=== PATIENT | male | born 1950 | race Caucasian/White ===

== ENCOUNTER → 2016-11-11 | Outpatient (CLI) | payer MEDICARE ==
[~2016-11-11] MED LIST: AMOXICILLIN/CLA1 TA1 PO; ASPIRIN E.C. 8181 MG PO; BENADRYL25 M2 PO; BRILINTA90 MG PO; COREG12.5 MG PO; MASON NATURAL1200 MG PO; MULTI VITAMINS1 TAB PO; NORCO 325 MG-51 TAB PO; NORCO 325 MG-7.1 TAB PO; PLAVIX 75MG TAB75 MG PO; PRINIVIL10 MG PO; PRINIVIL20 MG PO; PROBIOTIC ACID1 EAC3 PO; ROXICODONE15 MG PO; RT SPIRIVA18 MCG IH; XANAX .25M0.25 MG/TA PO
== END ==
LOC: COL.RAD 10:12
PROVIDERS: Urology
DX: N28.89 Other specified disorders of kidney and ureter (principal)
CPT/HCPCS: Q9967

== ENCOUNTER → 2017-01-16 | Outpatient (CLI) | payer MEDICARE | LOC: COL.RAD 10:36 | PROVIDERS: Surgery | DX: K57.30 Diverticulosis of large intestine without perforation or abscess without bleeding (principal); D38.1 Neoplasm of uncertain behavior of trachea, bronchus and lung | CPT/HCPCS: Q9967 ==

== ENCOUNTER 2017-04-17 09:42 | Outpatient (CLI) | payer MEDICARE ==
[~2017-04-17] VITALS: Ht 170.2 cm; Wt 81.8 kg
[2017-04-17] VITALS (18 sets, daily range): BP systolic 115–187; BP diastolic 55–98; PULSE 54–70
[2017-04-17] MEDS ORDERED: NORCO 325 MG-51 TAB PO (10:04)
== END 2017-04-17 14:23 | disposition home or self-care (01) ==
LOC: COL.RAD 09:42
DX: R91.1 Solitary pulmonary nodule (principal); J98.4 Other disorders of lung; C64.9 Malignant neoplasm of unspecified kidney, except renal pelvis
CPT/HCPCS: 18871

== ENCOUNTER 2017-06-02 06:48 | Outpatient (CLI) | payer MEDICARE ==
[~2017-06-02] VITALS: Ht 170.2 cm; Wt 87.0 kg
[2017-06-02] VITALS (15 sets, daily range): BP systolic 139–181; BP diastolic 70–96; PULSE 53–72
== END 2017-06-02 11:10 | disposition home or self-care (01) ==
LOC: COL.RAD 06:48
DX: R91.8 Other nonspecific abnormal finding of lung field (principal); Z85.528 Personal history of other malignant neoplasm of kidney
CPT/HCPCS: 27584

== ENCOUNTER → 2017-08-11 | Outpatient (CLI) | payer MEDICARE | LOC: COL.RAD 12:23 | DX: R91.8 Other nonspecific abnormal finding of lung field (principal); Z90.5 Acquired absence of kidney | CPT/HCPCS: Q9967 ==

== ENCOUNTER → 2018-04-06 | Outpatient (CLI) | payer MEDICARE | LOC: COL.RAD 08:40 | DX: R59.0 Localized enlarged lymph nodes (principal); J43.9 Emphysema, unspecified; C64.1 Malignant neoplasm of right kidney, except renal pelvis; Z90.5 Acquired absence of kidney | CPT/HCPCS: Q9967 ==

== ENCOUNTER 2019-10-04 07:58 | Emergency (ER) | payer MEDICARE ==
[~2019-10-04] VITALS: Ht 170.2 cm; Wt 89.1 kg
[2019-10-04 08:12] VITALS: TEMP 98.7
[2019-10-04 08:26] LABS: BASO % 0.7 % (0.0-2.0); EOS # 0.1 (0.0-0.7); EOS % 1.1 % (0-4.0); GRAN # 3.8 (1.4-6.5); GRAN % 69.2 % (42.2-75.2); HEMATOCRIT 44.9 % (42.0-52.0); HEMOGLOBIN 14.7 g/dl (13.5-18.0); LYMPH % 17.9 % (20.0-51.0); MEAN CELL VOLUME 104 fl (80.0-100.0); MEAN CORPUSCULAR HEMOGLOBIN 34 pg (27.0-31.0); MEAN CORPUSCULAR HGB CONC 33 g/dl (33.0-37.0); MEAN PLATELET VOLUME 9.9 fl (7.4-10.4); MONO # 0.6 (0.1-0.6); MONO % 10.7 % (1.7-9.3); PLATELET COUNT 179 K/mm3 (130-400); RED BLOOD COUNT 4.34 M/mm3 (4.20-5.60); REDCELL DISTRIBUTION WIDTH-CV 12.7 % (11.5-14.5)
[2019-10-04] MEDS ORDERED: NORVASC 5MG5 MG/TAB PO (08:28)
[2019-10-04] MEDS ORDERED: COZAAR 50MG50 MG/TAB PO (08:30)
[2019-10-04 08:36] LABS: INR 1.2 (0.8-3.0); PROTHROMBIN TIME 13.8 SECONDS (9.7-12.8)
[2019-10-04 08:37] LABS: CREATININE, serum 1.45 (0.66-1.25)
[2019-10-04 08:38] LABS: ALBUMIN 4.4 gm/dL (3.5-5.0); BILIRUBIN,TOTAL 0.6 mg/dL (0.0-1.0); C-REACTIVE PROTEIN 1.6 mg/dL (0.0-0.9); CALCIUM 9.1 mg/dL (8.4-10.2); POTASSIUM 4.8 mmol/L (3.4-5.0); TOTAL PROTEIN 7.8 gm/dL (6.4-8.2)
[2019-10-04] MEDS ORDERED: PEPCID AC 10MG10 MG PO (08:41)
[2019-10-04 09:15] LABS: COLLECTION METHOD CLEAN CATCH
[2019-10-04 09:28] LABS: MUCOUS Present /lpf; PH 5 (5-8); SQUAMOUS EPITHELIAL 0-2 /hpf; URINE APPEARANCE Clear; URINE BACTERIA None Seen /hpf; URINE BILIRUBIN Negative (NEGATIVE); URINE BLOOD Negative (NEGATIVE); URINE COLOR Yellow; URINE GLUCOSE Negative (NEGATIVE); URINE KETONE Trace (NEGATIVE); URINE LEUKOCYTE ESTERASE Negative (NEGATIVE); URINE NITRATE Negative (NEGATIVE); URINE PROTEIN(semi-quant) Negative (NEGATIVE); URINE RBC 0-2 /hpf; URINE UROBILINOGEN Negative (NEGATIVE)
[2019-10-04 10:45] VITALS: BP 161/86; PULSE 52
== END 2019-10-04 10:45 | disposition short-term general hospital (02) ==
LOC: COL.ER 07:58
PROVIDERS: Family Medicine
DX: I63.9 Cerebral infarction, unspecified (principal); I25.10 Atherosclerotic heart disease of native coronary artery without angina pectoris; Z79.02 Long term (current) use of antithrombotics/antiplatelets; Z79.82 Long term (current) use of aspirin; Z85.53 Personal history of malignant neoplasm of renal pelvis

== ENCOUNTER → 2020-03-07 | Outpatient (CLI) | payer MEDICARE ==
[~2020-03-07] MED LIST changes: +COZAAR 50MG50 MG/TAB PO; +NORVASC 5MG5 MG/TAB PO; +PEPCID AC 10MG10 MG PO
== END ==
LOC: COL.RAD 08:24
DX: C64.1 Malignant neoplasm of right kidney, except renal pelvis (principal); J98.59 Other diseases of mediastinum, not elsewhere classified; J43.9 Emphysema, unspecified; R91.1 Solitary pulmonary nodule; Z90.5 Acquired absence of kidney; Z98.890 Other specified postprocedural states; N32.89 Other specified disorders of bladder

== ENCOUNTER → 2021-05-17 | Outpatient (CLI) | payer MEDICARE | LOC: COL.RAD 12:10 | DX: Z90.5 Acquired absence of kidney (principal); C64.1 Malignant neoplasm of right kidney, except renal pelvis; Z79.899 Other long term (current) drug therapy ==

== ENCOUNTER 2024-05-02 13:57 | Inpatient (IN) | payer MEDICARE ==
[~2024-05-02] VITALS: Ht 170.2 cm; Wt 80.3 kg
[~2024-05-02 13:57] MED LIST changes: +ASPI325T6 PO; -ASPIRIN E.C. 8181 MG PO; +BREZTRI AEROS10.7 GM IH; +KRILL OIL 5001 EACH PO; +LOPID 600M600 MG/TAB PO; +NITROSTAT0.4 MG/TAB SL; +PREDNISONE20 MG PO; +PRILOTC PO; +[UNRECOGNIZED DRUG - CODE] SL
[2024-05-02 14:45] LABS: MEAN CELL VOLUME 97 fl (80.0-100.0); MEAN CORPUSCULAR HGB CONC 32 g/dl (33.0-37.0); MEAN PLATELET VOLUME 11.7 fl (7.4-10.4); PLATELET COUNT 104 K/mm3 (130-400); RED BLOOD COUNT 3.03 M/mm3 (4.20-5.60); REDCELL DISTRIBUTION WIDTH-CV 20.7 % (11.5-14.5)
[2024-05-02] MEDS ORDERED: NS 1,000 ML IV ONE ×4 (14:45→20:30)
[2024-05-02 14:46] LABS: HEMATOCRIT 29.3 % (42.0-52.0); HEMOGLOBIN 9.3 g/dl (13.5-18.0); MEAN CORPUSCULAR HEMOGLOBIN 31 pg (27-31)
[2024-05-02 15:06] LABS: ALBUMIN 2.9 g/dL (3.4-4.8); BILIRUBIN,TOTAL 0.7 mg/dL (0.2-1.2); CALCIUM 7.8 mg/dL (8.4-10.2); CREATININE, serum 2.38 mg/dL (0.72-1.25); POTASSIUM 4.7 mEq/L (3.5-4.5)
[2024-05-02 15:26] LABS: ANISOCYTOSIS 2+; BAND 2 % (0-10); HYPOCHROMIA 2+; LYMPHOCYTE 34 % (20.0-51.0); NEUTROPHILS 62 % (42.0-75.2); PLATELET ESTIMATE DECREASED (NORMAL)
[2024-05-02] MEDS ORDERED: Azithromycin 500 MG in NS 250 ML IV ONE (16:00)
[2024-05-02] MEDS ORDERED: cefTRIAXone 1 G in Water For Injection,Sterile 10 ML IV ONE (16:00)
[2024-05-02] MEDS ORDERED: NORCO 325 MG-101 TAB PO (16:42)
[2024-05-02] MEDS ORDERED: XANAX 0.5MG0.5 MG PO (16:44)
[2024-05-02 17:35] LABS: COLLECTION METHOD CLEAN CATCH
[2024-05-02 17:44] LABS: PH 5.5 (5.0-8.5); URINE APPEARANCE CLEAR (CLEAR/HAZY); URINE BLOOD NEGATIVE (NEGATIVE); URINE COLOR YELLOW (YELLOW); URINE GLUCOSE NEGATIVE (NEGATIVE); URINE KETONE NEGATIVE (NEGATIVE); URINE NITRATE NEGATIVE (NEGATIVE); URINE PROTEIN(semi-quant) 1+ (NEGATIVE)
[2024-05-02] MEDS ORDERED: *Potassium Replacement Protocol MC SCH (18:15)
[2024-05-02] MEDS ORDERED: Doxycycline Hyclate 100 MG in NS 150 ML IV SCH (18:30)
[2024-05-02] MEDS ORDERED: ALPRAZolam 0.5 MG TAB PO PRN (18:30)
[2024-05-02 18:38] VITALS: BP 108/50; PULSE 62; TEMP 97.7
[2024-05-02] MEDS ORDERED: NS 1,000 ML IV SCH ×2 (18:45→23:00)
--- NOTE | 2024-05-02 18:45 | NUR ---
Pt arrived to room ICU 4. Pt is A&Ox4. Denies pain. Vital signs are WNL. Pt denies any needs. Call light within reach. Bed alarm activated. Will continue with POC.
[2024-05-02] MEDS ORDERED: Albuterol/Ipratropium 3 MG-0.5 MG/3 ML Neb Soln IH SCH (19:00)
--- NOTE | 2024-05-02 22:54 | NUR ---
2245: NICHOLAS IN ICU TO CHECK ON PATIENTS. RECVD VERBL ORDER TO INCREASED IVFS TO 100CC/HR.
[2024-05-03] VITALS (8 sets, daily range): BP systolic 90–122; BP diastolic 51–66; PULSE 56–78; TEMP 97.4–98.3
[2024-05-03] MEDS ORDERED: Gemfibrozil 600 MG TAB PO SCH (07:00)
--- NOTE | 2024-05-03 07:00 | NUR ---
Report received from MAXIMINO Oscar; patient currently resting in bed watching TV. Patient has NS running through a peripheral line. Patient on 2 liters of O2 via NC this morning; no other lines or tubes are in place at this time. Patient's vital signs within normal limits this morning.
[2024-05-03 07:06] LABS: MEAN CELL VOLUME 98 fl (80.0-100.0); MEAN CORPUSCULAR HGB CONC 32 g/dl (33.0-37.0); MEAN PLATELET VOLUME 11.7 fl (7.4-10.4); PLATELET COUNT 93 K/mm3 (130-400); RED BLOOD COUNT 2.42 M/mm3 (4.20-5.60); REDCELL DISTRIBUTION WIDTH-CV 20.5 % (11.5-14.5)
[2024-05-03 07:15] LABS: HEMATOCRIT 23.8 % (42.0-52.0); HEMOGLOBIN 7.7 g/dl (13.5-18.0); MEAN CORPUSCULAR HEMOGLOBIN 32 pg (27-31)
[2024-05-03 07:35] LABS: ALBUMIN 2.3 g/dL (3.4-4.8); CALCIUM 6.6 mg/dL (8.4-10.2); CREATININE, serum 1.54 mg/dL (0.72-1.25); MAGNESIUM 1.9 mg/dL (1.6-2.6); PHOSPHOROUS 3.8 mg/dL (2.3-4.7); POTASSIUM 4.3 mEq/L (3.5-4.5)
[2024-05-03] MEDS ORDERED: Albuterol/Ipratropium 3 MG-0.5 MG/3 ML Neb Soln IH SCH (08:00)
[2024-05-03 08:19] LABS: BAND 3 % (0-10)
[2024-05-03 08:20] LABS: LYMPHOCYTE 35 % (20.0-51.0); NEUTROPHILS 59 % (42.0-75.2)
[2024-05-03 08:21] LABS: ANISOCYTOSIS 2+; HYPOCHROMIA 2+; PLATELET ESTIMATE DECREASED (NORMAL); TEAR DROP CELLS 1+
--- NOTE | 2024-05-03 09:35 | NUR ---
dope and fabric worker met with pt to discuss discharge planning. He reports to live with his , Paula [phone] in [place]. He sees Dr. Daniel and obtains medications from [facility] with no difficulties. He reports his as DPOA-HC and SW verified this on file. He is independent with ADLS and uses a cane and home oxygen as needed; he could not recall the company. He reports two recent falls this week related to his admission dx. SAÚL advised PT/OT will assess him and make reccomendations. Pt verbalized understanding of this. PT/OT Pending Discharge Plan: tbd, home
--- NOTE | 2024-05-03 10:24 | NUR ---
Initial visit; Patient thanked Product Handler for looking in on him and offering God's blessings. Patient states he is doing much better.
[2024-05-03] MEDS ORDERED: Clopidogrel 75 MG TAB PO SCH (10:38)
[2024-05-03] MEDS ORDERED: D5W 1,000 ML IV SCH (12:45)
[2024-05-03] MEDS ORDERED: Dextrose 50% Water 25 GM/50 ML SYRINGE IV PRN (13:15)
[2024-05-03] MEDS ORDERED: Dextrose (Glucose) 15 GM (4 x 3.75 GM) Chewable TABLET PACK PO PRN (13:15)
[2024-05-03] MEDS ORDERED: Glucagon 1 MG VIAL IM PRN (13:15)
[2024-05-03] MEDS ORDERED: HYDROcodone/Acetaminophen 10-325 MG TAB PO PRN (14:45)
[2024-05-03] MEDS ORDERED: Heparin 5,000 UNITS/ML 1 ML VIAL SQ SCH (16:00)
--- NOTE | 2024-05-03 16:00 | NUR ---
PATIENT ARRIVED TO UNIT AWAKE ALERT AND ORIENTED. CALL LIGHT WTIHIN REACH. PATIENT IVF INFUSING THE LAST BAG OF NS. PATIENTS AT BEDSIDE ASSISTING PATIENT TO GET "MOVED IN TO HIS NEW ROOM." VSS.
--- NOTE | 2024-05-03 16:45 | NUR ---
UPON ENTERING ROOM THIS RN SAW 2 MEDICATION BOTTLES AT PATIENT BEDSIDE. UPON LOOKING, THERE WAS A BOTTLE OF HYDROCODONE/TYLENOL 10MG/325MG. 2ND BOTTLE IS 0.5MG OF ALPRAZOLAM. PATIENT AT FIRST REFUSING TO HAVE PHARMACY HOLD OR HAVE HIS TAKE THEM HOME. AFTER DISCUSSION AND EDUCATING HIM REGARDING OUR HOSPITAL POLICY. PATIENT ALSO MADE AWARE THAT WE HAVE THOSE MEDICAITONS IN HOUSE AND ON HIS CHART SHOULD HE NEED IT. PATIENT IN AGREEMENT WITH PHARMACY HOLDING MEDS. THIS RN AND PATIENT WELL TIRE RECAPPER COUNTED HOW MANY PILLS IN EACH BOTTOLE. NORCO 10MG TABS HAD 5 TABLETS IN THE BOTTOLE. AND HIS XANAX O.5MG HAD 9 TABLETS IN THE BOTTLE. PATIENT MEDS TAKEN TO PHARMACY FOR SAFE KEEPING.
[2024-05-03] MEDS ORDERED: cefTRIAXone 1 G in Water For Injection,Sterile 10 ML IV SCH (17:00)
[2024-05-03] MEDS ORDERED: Insulin Lispro (HumaLOG) SQ SCH (17:00)
[2024-05-03] MEDS ORDERED: Albuterol/Ipratropium 3 MG-0.5 MG/3 ML Neb Soln IH PRN (19:54)
--- NOTE | 2024-05-03 20:30 | NUR ---
SHIFT ASSESSMENT COMPLETE. SISTER VISITING BEDSIDE PATIENT DENIES CHEST PAIN AND SOA AT THIS TIME. STAES HE IS URINATING FREQUENTLY WITH NO COMPLICATIONS. LUNG SOUNDS ARE CUREENTLY CLEAR THROUGHOUT. WRIGHT CAN BE NOTED WHEN ANSWERING ASSESSMENT QUESTIONS. VS ARE WNL. STATES NO NEEDS AT THIS TIME.
--- NOTE | 2024-05-04 | NUR ---
OFFERED NC O2 2L FOR PRN at HS. PATIENT REFUSED O2 SAT 95% ON RA.
[2024-05-04 00:09] VITALS: BP 144/71; PULSE 67; TEMP 98.2
[2024-05-04 01:00] VITALS: BP_SYST 144
--- NOTE | 2024-05-04 01:02 | NUR ---
CALL PLACED TO HOSPITALIST CRESENCIO. PATIENT HAS SUB Q HEPARIN SCHEDULED 3 TIMES DAILY ALONG WITH PLAVIX. PATIENT'S PLT COUNT 93L AND HGB 7.7L. TORB TO HOLD SUBCUTANEOUS HEPARIN GIVEN.
[2024-05-04 03:58] VITALS: BP 153/71; PULSE 71; TEMP 98.4
[2024-05-04 05:17] VITALS: BP_SYST 153
[2024-05-04 06:45] LABS: MEAN CELL VOLUME 96 fl (80.0-100.0); MEAN CORPUSCULAR HGB CONC 32 g/dl (33.0-37.0); MEAN PLATELET VOLUME 11.2 fl (7.4-10.4); PLATELET COUNT 122 K/mm3 (130-400); RED BLOOD COUNT 2.91 M/mm3 (4.20-5.60); REDCELL DISTRIBUTION WIDTH-CV 20.9 % (11.5-14.5)
[2024-05-04 06:54] LABS: HEMOGLOBIN 8.9 g/dl (13.5-18.0); MEAN CORPUSCULAR HEMOGLOBIN 31 pg (27-31)
--- NOTE | 2024-05-04 07:00 | NUR ---
BEDIDE REPORT GIVEN AT THIS TIME. PT VOICES NO COMPLAINTS. CALL LIGHT WITHIN REACH.
[2024-05-04 07:12] LABS: ALBUMIN 2.3 g/dL (3.4-4.8); CALCIUM 7.2 mg/dL (8.4-10.2); CREATININE, serum 1.38 mg/dL (0.72-1.25); MAGNESIUM 1.8 mg/dL (1.6-2.6); PHOSPHOROUS 2.2 mg/dL (2.3-4.7)
--- NOTE | 2024-05-04 07:45 | NUR ---
Patient sitting up in bed, wanting to go home. A&Ox4. VSS. IV CDI. Denies pain and discomfort. No further needs expressed. Call light within reach
[2024-05-04 08:07] VITALS: BP 153/71; PULSE 77; TEMP 98.2
[2024-05-04 08:46] LABS: ANISOCYTOSIS 2+; BAND 2 % (0-10); HYPOCHROMIA 2+; LYMPHOCYTE 35 % (20.0-51.0); NEUTROPHILS 60 % (42.0-75.2); PLATELET ESTIMATE DECREASED (NORMAL); TEAR DROP CELLS 1+
[2024-05-04] MEDS ORDERED: VANTIN 200200 MG/TAB PO (08:50)
--- NOTE | 2024-05-04 09:37 | NUR ---
DISCONTINUED INT. TIPIN TACT. GAUZE AND COBAND APPLIED. NO FURTHER NEEDS EXPRESSED.
--- NOTE | 2024-05-04 09:37 | NUR ---
DISCHARGE EDUCATION PROVIDED AT THIS TIME. PT VOICES UNDERSTANDING AND NO CONCERNS AT THIS TIME. PT TRANSPORTED VIA WHEELCHAIR TO PRIVATE VEHICLE WITH FAMILY.
== END 2024-05-04 09:40 | disposition home or self-care (01) | DRG 193 ==
LOC: COL.ER 13:57 → ICU 15:43 → MEDICAL 18:20
PROVIDERS: Personal Emergency Response Attendant; ADMIT Internal Medicine
DX: J18.9 Pneumonia, unspecified organism (principal); G93.41 Metabolic encephalopathy; J96.11 Chronic respiratory failure with hypoxia; N17.9 Acute kidney failure, unspecified; I10 Essential (primary) hypertension; I25.10 Atherosclerotic heart disease of native coronary artery without angina pectoris; Z95.5 Presence of coronary angioplasty implant and graft; Z86.73 Personal history of transient ischemic attack (TIA), and cerebral infarction without residual deficits; F41.9 Anxiety disorder, unspecified
CPT/HCPCS: J0456; J0696; J1644; J7030; J7050